=== PATIENT | male | born 1970 | race African-American/Black ===

== ENCOUNTER → 2017-08-23 | Outpatient (CLI) | payer OTHER ==
[~2017-08-23] MED LIST: ASPIR 8181 MG PO; FLEXERIL PO; LISINOPRIL20 MG PO; NAPROSYN500 MG PO; XANAX1 MG PO
== END ==
LOC: CAT 11:03
DX: S09.90XA Unspecified injury of head, initial encounter (principal); X58.XXXA Exposure to other specified factors, initial encounter; Y93.89 Activity, other specified; Y92.89 Other specified places as the place of occurrence of the external cause; Y99.8 Other external cause status

== ENCOUNTER 2018-01-27 09:20 | Emergency (ER) | payer OTHER ==
[~2018-01-27] VITALS: Ht 182.9 cm; Wt 115.7 kg
[2018-01-27] MEDS ORDERED: NORCO 5-325 TA1 EACH PO (10:28)
[2018-01-27] MEDS ORDERED: PERCOCET 5-3251 EACH PO (10:36)
== END 2018-01-27 10:56 | disposition home or self-care (01) ==
LOC: ER 09:20
DX: S46.001A Unspecified injury of muscle(s) and tendon(s) of the rotator cuff of right shoulder, initial encounter (principal); W19.XXXA Unspecified fall, initial encounter; Y93.89 Activity, other specified; Y92.89 Other specified places as the place of occurrence of the external cause; Y99.8 Other external cause status; I10 Essential (primary) hypertension; F41.9 Anxiety disorder, unspecified

== ENCOUNTER → 2018-02-03 | Outpatient (CLI) | payer OTHER ==
[~2018-02-03] MED LIST changes: +NORCO 5-325 TA1 EACH PO; +PERCOCET 5-3251 EACH PO
== END ==
LOC: MRI 06:25
DX: S46.011A Strain of muscle(s) and tendon(s) of the rotator cuff of right shoulder, initial encounter (principal); Z91.81 History of falling

== ENCOUNTER → 2018-12-06 | Outpatient (CLI) | payer OTHER ==
[~2018-12-06] MED LIST changes: +ACYCLOVIR 200200 MG PO; +PREDNISONE 20 M20 MG PO
== END ==
LOC: CAT 11-22 12:31
DX: R51 Headache (principal)

== ENCOUNTER 2019-11-07 11:25 | Emergency (ER) | payer OTHER ==
[~2019-11-07] VITALS: Ht 182.9 cm; Wt 113.4 kg
[2019-11-07 11:54] LABS: ABSOLUTE NEUTROPHILS 8.1 thou/uL (1.4-8.2); BASOPHILS 0.4 % (0.0-2.0); HEMATOCRIT 47.8 % (42.0-52.0); HEMOGLOBIN 16.2 gm/dL (14.0-18.0); LYMPHOCYTES 10.4 % (24.0-44.0); MCH 30.6 pg (26.0-34.0); MCHC 33.8 g/dL (28.0-37.0); MCV 90.4 fL (80.0-100.0); MONOCYTES 7.5 % (1.0-8.0); PLATELET COUNT 272 thou/uL (150-400); POLYS 81.7 % (36.0-66.0); RBC 5.29 mil/uL (4.50-6.00); RDW 14.3 % (10.5-14.5); WBC 9.9 thou/uL (4.0-11.0)
[2019-11-07 12:09] LABS: CALCIUM 9.1 mg/dL (8.5-10.1); CREATININE 1.4 mg/dL (0.7-1.3)
[2019-11-07 12:13] LABS: TOTAL BILIRUBIN 0.3 mg/dL (<0.1-1.0); TOTAL PROTEIN 9.3 g/dL (6.4-8.2)
[2019-11-07] MEDS ORDERED: ONDANSETRON HCL4 M2 PO (13:26)
[2019-11-07] MEDS ORDERED: TESSALON PERLE100 MG PO (13:26)
[2019-11-07] MEDS ORDERED: IBUPROFEN 600600 M1 PO (13:26)
[2019-11-07 14:35] VITALS: BP 108/72
== END 2019-11-07 14:44 | disposition home or self-care (01) ==
LOC: ER 11:25
PROVIDERS: Nurse Practitioner Family
DX: J11.1 Influenza due to unidentified influenza virus with other respiratory manifestations (principal); E86.0 Dehydration; I10 Essential (primary) hypertension; F41.9 Anxiety disorder, unspecified

== ENCOUNTER → 2020-12-11 | Outpatient (CLI) | payer OTHER ==
[~2020-12-11] MED LIST changes: +IBUPROFEN 600600 M1 PO; +ONDANSETRON HCL4 M2 PO; +TESSALON PERLE100 MG PO
== END ==
LOC: LAB 09:32
PROVIDERS: ATTEND Family Medicine
DX: R50.9 Fever, unspecified (principal); J02.9 Acute pharyngitis, unspecified; R05 Cough; Z20.822 Contact with and (suspected) exposure to COVID-19